=== PATIENT | male | born 1955 | race Caucasian/White ===

== ENCOUNTER → 2022-07-14 | Day surgery (SDC) | payer OTHER ==
[~2022-07-14] VITALS: Ht 177.8 cm; Wt 83.9 kg
[~2022-07-14] MED LIST: ASPIRIN CHEWABL81 MG PO; ATORVASTATIN CA20 M1 PO; BUSPIRONE HCL30 MG PO; LIPITOR10 MG PO; LISINOPRIL20 MG PO; LOPRESSOR25 MG PO; NABUMETONE750 M1 PO; NATURE'S BLEND F1 MG PO; Nizoral 2%15 GM T; THERA TABLET400 MCG PO; TRAZODONE100 MG PO; TRINTELLIX10 MG PO; VITAMIN B-1100 M1 PO; ZESTRIL10 MG PO; ZESTRIL40 MG PO
[2022-07-14 11:28] VITALS: BP 154/88
[2022-07-14 12:50] VITALS: BP 131/84
[2022-07-14 13:05] VITALS: BP 141/81
[2022-07-14 13:20] VITALS: BP 139/83
== END | disposition home or self-care (01) ==
LOC: SDC 07-09 14:00
PROVIDERS: ATTEND Ophthalmology
DX: H25.811 Combined forms of age-related cataract, right eye (principal); I10 Essential (primary) hypertension; F41.9 Anxiety disorder, unspecified; F32.A Depression, unspecified; E78.00 Pure hypercholesterolemia, unspecified; F17.210 Nicotine dependence, cigarettes, uncomplicated; Z79.899 Other long term (current) drug therapy

== ENCOUNTER 2023-03-19 01:56 | Emergency (ER) | payer OTHER ==
[~2023-03-19] VITALS: Ht 172.7 cm; Wt 74.8 kg
[2023-03-19 02:44] LABS: BASO % 0.5 % (0.0-1.0); EOS # 0.1 10*3/uL (0.0-0.4); EOS % 0.9 % (1.0-4.0); HEMATOCRIT 45.6 % (42.0-52.0); LYMPH # 1.4 10*3/uL (1.3-4.4); LYMPH % 21.1 % (27.0-41.0); MEAN CELL VOLUME 88.5 fl (80.0-94.0); MEAN CORPUSCULAR HGB 31.8 pg (27.0-31.0); MEAN PLATELET VOLUME 9.6 fl (9.6-12.3); MONO # 0.3 10*3/uL (0.1-1.0); NEUT # 4.7 10*3/uL (2.3-7.9); NEUT % 71.9 % (47.0-73.0); PLATELET COUNT AUTOMATED 221 10*3/uL (130-400); RED BLOOD COUNT 5.15 10*6/uL (4.50-5.90); WHITE BLOOD COUNT 6.6 10*3/uL (4.8-10.8)
[2023-03-19 02:55] LABS: ACT PARTIAL THROMBO TIME 26.2 SECONDS (20.0-32.1)
[2023-03-19 03:14] LABS: ALKALINE PHOSPHATASE 105 U/L (46-116); BUN 9 mg/dl (9-23); CHLORIDE 105 mmol/L (98-107); CPK 340 U/L (34-171); LIPASE 45 U/L (12-53); POTASSIUM 3.9 mmol/L (3.4-5.1); SGPT/ALT 21 U/L (10-49); TOTAL PROTEIN 7.9 gm/dL (6.0-8.0)
[2023-03-19 03:16] LABS: ETHYL ALCOHOL 419.7 mg/dl (<3)
[2023-03-19 03:54] LABS: BILIRUBIN Negative (Negative); BLOOD 1+ (Negative); CLARITY Clear (Clear); COLOR Yellow (Yellow); GLUCOSE Negative (Negative); KETONE Negative (Negative); LEUKO ESTERASE Negative (Negative); NITRITE Negative (Negative); PH 5.5 (4.5-8.0); SPECIFIC GRAVITY <= 1.005 (1.001-1.030); UROBILINOGEN 0.2 E.U./dl (0.0-1.0)
[2023-03-19 04:01] LABS: URINE AMPHETAMINES Negative (1000ng/ml); URINE BARBITURATES Negative (200ng/ml); URINE BENZODIAZEPINES Negative (200ng/ml); URINE CANNABINOIDS (THC) Negative (50ng/ml); URINE COCAINE Negative (300ng/ml); URINE METHADONE Negative (300ng/ml); URINE OPIATES Negative (300ng/ml); URINE PHENCYCLIDINE Negative (25ng/ml)
[2023-03-19 04:12] LABS: BACTERIA 1+; MUCOUS 1+; WBC 0-2 wbc/hpf (0-5)
[2023-03-19] MEDS ORDERED: CIPRO500 MG PO (04:22)
== END 2023-03-19 09:45 | disposition home or self-care (01) ==
LOC: ED 01:56
PROVIDERS: Internal Medicine
DX: N39.0 Urinary tract infection, site not specified (principal); R51.9 Headache, unspecified; F10.129 Alcohol abuse with intoxication, unspecified; I10 Essential (primary) hypertension; F41.9 Anxiety disorder, unspecified; F32.A Depression, unspecified; Z98.890 Other specified postprocedural states; Z96.651 Presence of right artificial knee joint; F17.200 Nicotine dependence, unspecified, uncomplicated; Y90.8 Blood alcohol level of 240 mg/100 ml or more; F19.10 Other psychoactive substance abuse, uncomplicated; Z79.899 Other long term (current) drug therapy

== ENCOUNTER 2024-01-03 17:30 | Emergency (ER) | payer OTHER ==
[~2024-01-03] VITALS: Ht 177.8 cm; Wt 83.9 kg
[~2024-01-03 17:30] MED LIST changes: +CIPRO500 MG PO
== END 2024-01-03 17:55 | disposition left against medical advice (07) ==
LOC: ED 17:30
DX: R68.84 Jaw pain (principal); R07.81 Pleurodynia; Z53.21 Procedure and treatment not carried out due to patient leaving prior to being seen by health care provider; W01.0XXA Fall on same level from slipping, tripping and stumbling without subsequent striking against object, initial encounter; Y93.89 Activity, other specified; Y92.89 Other specified places as the place of occurrence of the external cause; Y99.8 Other external cause status

== ENCOUNTER 2024-01-16 21:37 | Emergency (ER) | payer OTHER ==
[~2024-01-16] VITALS: Ht 180.3 cm; Wt 74.8 kg
[2024-01-16] MEDS ORDERED: SODIUM CHLORIDE 0.9% 1,000 ML IV ONE (21:45)
[2024-01-16] MEDS ORDERED: Thiamine 200 MG/2 ML VIAL IV ONE (21:45)
[2024-01-16 21:58] LABS: BASO % 0.3 % (0.0-1.0); EOS % 0.6 % (1.0-4.0); HEMATOCRIT 42.2 % (42.0-52.0); LYMPH % 30.3 % (27.0-41.0); MEAN CORPUSCULAR HGB 31.8 pg (27.0-31.0); MEAN CORPUSCULAR HGB CONC 35.3 g/dl (33.0-37.0); MEAN PLATELET VOLUME 9.1 fl (9.6-12.3); MONO # 0.4 10*3/uL (0.1-1.0); MONO % 5.9 % (3.0-9.0); NEUT % 62.4 % (47.0-73.0); PLATELET COUNT AUTOMATED 246 10*3/uL (130-400); RED BLOOD COUNT 4.69 10*6/uL (4.50-5.90); RED CELL DISTRI WIDTH 12.5 % (0-14.5); WHITE BLOOD COUNT 6.4 10*3/uL (4.8-10.8)
[2024-01-16 22:23] LABS: BILIRUBIN Negative (Negative); BLOOD Negative (Negative); CLARITY Clear (Clear); COLOR Yellow (Yellow); GLUCOSE Negative (Negative); KETONE Negative (Negative); LEUKO ESTERASE Negative (Negative); NITRITE Negative (Negative); PH 5.5 (4.5-8.0); SPECIFIC GRAVITY <= 1.005 (1.001-1.030); UROBILINOGEN 0.2 E.U./dl (0.0-1.0)
[2024-01-16 22:27] LABS: ALKALINE PHOSPHATASE 160 U/L (46-116); BUN 6 mg/dl (9-23); CHLORIDE 100 mmol/L (98-107); CPK 170 U/L (34-171); POTASSIUM 3.7 mmol/L (3.4-5.1); SGPT/ALT 12 U/L (5-49); TOTAL PROTEIN 7.5 gm/dL (6.0-8.0)
[2024-01-16 22:31] LABS: ETHYL ALCOHOL 422.8 mg/dl (<3)
[2024-01-16 22:33] LABS: RBC 0-2 rbc/hpf (0-2); WBC 0-2 wbc/hpf (0-5)
[2024-01-19] MEDS ORDERED: TRINTELLIX20 MG PO (00:40)
[2024-01-19] MEDS ORDERED: AMLODIPINE BESY10 MG PO (00:40)
== END 2024-01-16 23:56 | disposition left against medical advice (07) ==
LOC: ED 21:37
PROVIDERS: Internal Medicine
DX: S50.312A Abrasion of left elbow, initial encounter (principal); F10.129 Alcohol abuse with intoxication, unspecified; I10 Essential (primary) hypertension; F41.9 Anxiety disorder, unspecified; F32.A Depression, unspecified; F17.200 Nicotine dependence, unspecified, uncomplicated; F19.10 Other psychoactive substance abuse, uncomplicated; Z53.29 Procedure and treatment not carried out because of patient's decision for other reasons; Z96.651 Presence of right artificial knee joint; Z98.890 Other specified postprocedural states; Y90.8 Blood alcohol level of 240 mg/100 ml or more; W19.XXXA Unspecified fall, initial encounter; Y93.89 Activity, other specified; Y92.009 Unspecified place in unspecified non-institutional (private) residence as the place of occurrence of the external cause; Y99.8 Other external cause status